=== PATIENT | female | born 1955 | race Caucasian/White ===

== ENCOUNTER 2018-03-19 10:22 | Outpatient (CLI) | payer OTHER | END 2018-03-19 10:23 | disposition home or self-care (01) | LOC: BICMRI 10:22 | PROVIDERS: ATTEND Internal Medicine Geriatric Medicine | DX: M47.892 Other spondylosis, cervical region (principal); M99.81 Other biomechanical lesions of cervical region | CPT/HCPCS: 72141 ==

== ENCOUNTER 2019-03-16 08:40 | Outpatient (CLI) | payer OTHER ==
--- NOTE | 2019-03-16 09:35 | MMO ---
Bilateral MAMMO Bilat Diag [facility]. CLINICAL HISTORY: Patient is 63 years old and is seen for diagnostic exam and palpable abnormality in the left axilla. The patient has no family history of breast cancer. The patient has no personal history of cancer. The patient has a history of left Excisional Biopsy in 20 plus years a - benign. VIEWS: The views performed were: bilateral craniocaudal with tomosynthesis; bilateral mediolateral oblique with tomosynthesis; bilateral mediolateral; and left axillary tail with tomosynthesis. FILMS COMPARED: The present examination has been compared to prior imaging studies performed at [facility] on 03/19/2018 and 03/16/2019. MAMMOGRAM FINDINGS: There are scattered fibroglandular densities. There are benign appearing calcifications seen in both breasts. There are no suspicious masses, suspicious calcifications, or new areas of architectural distortion. IMPRESSION: THERE IS NO MAMMOGRAPHIC EVIDENCE OF MALIGNANCY. A ROUTINE FOLLOW-UP MAMMOGRAM IN 1 YEAR IS RECOMMENDED. THE RESULTS OF THIS EXAM WERE SENT TO THE PATIENT. ACR BI-RADS Category 2 - Benign finding MAMMOGRAPHY NOTE: 1. A negative mammogram report should not delay a biopsy if a dominant of clinically suspicious mass is present. 2. Approximately 10% to 15% of breast cancers are not detected by mammography. 3. Adenosis and dense breasts may obscure an underlying neoplasm.
--- NOTE | 2019-03-16 10:19 | ULT ---
LEFT AXILLARY ULTRASOUND: Comparison: Mammogram, 03-16-19, 03-19-18. History: Palpable mass in the left axilla. Technique: Multiplanar grayscale and color doppler images were obtained in a left axillary ultrasound . FINDINGS: At the area of palpable abnormality there is a normal appearing lymph node measuring 2.[address]. This has a normal echogenic hilum. IMPRESSION: The palpable abnormality represents a left axillary lymph node. POS: YULI
--- NOTE | 2019-03-16 10:20 | ULT ---
EXAM: US Thyroid STANDARD PROVIDED CLINICAL HISTORY: Thyroid nodule COMPARISON: None FINDINGS: The right lobe of the thyroid gland measures 4.8 cm x 1.4 cm x 1.5 cm with the left lobe measuring 4. 4 cm x 1.2 cm x 1.5 cm. The thyroid isthmus is mildly thickened measuring 0.4 cm in AP dimensions. There is a small solid and cystic hypoechoic nodule midportion right lobe of thyroid gland measuring 0.6 cm with a circumscribed hypoechoic nodule inferior pole right lobe of the thyroid gland measuring 0.8 cm. A 0.6 cm slightly heterogeneous hypoechoic nodule is seen in the medial aspect superior pole left lob e of thyroid gland. There is a larger heterogeneous but predominantly hypoechoic nodule seen in the midportion left lobe of thyroid gland measuring 0.7 cm. A few echogenic foci are seen within this nod ule in the midportion left lobe of the thyroid gland suggesting tiny calcifications, and the margins of this nodule are slightly lobulated. IMPRESSION: TI-RADS level 5: Highly suspicious nodule midportion left lobe thyroid gland. Recommendation is for f ine-needle aspiration greater than or equal to 1 cm or follow-up evaluation greater than or equal to 0.5 cm. This nodule measures 0.7 cm which warrants continued follow-up evaluation by TI-RADS categ ory level.
== END 2019-03-16 08:41 | disposition home or self-care (01) ==
LOC: BICMAMMO 08:40
PROVIDERS: ATTEND Internal Medicine Geriatric Medicine
DX: E04.9 Nontoxic goiter, unspecified (principal); R59.0 Localized enlarged lymph nodes; N63.0 Unspecified lump in unspecified breast; E04.1 Nontoxic single thyroid nodule
CPT/HCPCS: 76536; 77066; G0279